=== PATIENT | female | born 1995 | race Caucasian/White ===

== ENCOUNTER 2024-10-14 20:31 | Emergency (ER) | payer MEDICAID, SELFPAY ==
[2024-10-14 20:32] VITALS: BP 120/77; PULSE 86; RESP 16; TEMP 35.7; O2SAT 100
--- NOTE | 2024-10-14 20:45 | EDS_ITS ---
HPI HPI - Female History of Present Illness Chief Complaint: Informant: patient Pain Pain: Negative for Pelvic Pain or Vaginal Pain Quality: Negative for Cramping Bleeding Issue: Negative for Vaginal bleeding, Passing clots or Passing tissue Narrative Narrative: Patient presents for concern for . Patient states she is approximately 19 weeks . Patient states she has not been feeling movements as much today. Patient states she felt them earlier this morning but throughout the day she has not been feeling movements. Patient called her PASSENGER SERVICE MANAGER who referred her to the emergency department. Patient denies any bleeding or discharge. Patient denies any cramping. Patient denies any leakage of fluids. Patient denies any fevers or chills. PFSH PFSH no medical history Allergy/AdvReac Type Severity Reaction Status Date / Time No Known Allergies Allergy Verified 10/14/24 20:32 no surgical history Social History Smoking Status: Never smoker ROS ROS ED Constitutional Constitutional ED: Denies chills or fever(s) ENT ENT ED: Denies sore throat Cardiovascular Cardiovascular: Denies chest pain or palpitations Respiratory/Chest Respiratory/Chest: Denies cough or dyspnea Gastrointestinal Gastrointestinal: Denies nausea or vomiting Genitourinary Genitourinary ED: Denies dysuria or hematuria Musculoskeletal Musculoskeletal: Denies back pain Neurologic Neurologic: Denies weakness EXAM Physical Exam Const Vital Signs: 10/14/24 20:32 Temperature 96.2 F L Temperature Source Temporal Pulse Rate 86 Respiratory Rate 16 Blood Pressure 120/77 Blood Pressure Mean 91 Pulse Ox 100 Oxygen Delivery Method Room Air Positive well nourished and well developed General Appearance ED: well developed and NAD HEENT Reports moist mucous membranes Neck supple and no JVD GI soft to palpation, non-tender and non-distended Extremity full ROM Neuro oriented x3, CN's II-XII intact bilaterally and no sensory deficits noted Sensorium / Orientation: alert Motor Exam: strength 5/5 throughout Psych mental status grossly normal MDM [facility] Treatment and Re-Evaluation Narrative: [id number] ultrasound was used. There is good movement. There is good heart rate noted. Patient was reassured. Patient feels better. Patient was instructed to follow-up with her PASSENGER SERVICE MANAGER in 3 to 5 days. Patient was instructed to return if worse in any way. Patient understood and was agreeable with the plan. All questions were answered. Discharge Plan Triage Chief Complaint: ED Midlevel Provider: Shalini Loving ED Provider: Carlos Grant Dx/Rx/DC Orders Clinical Impression: Second trimester Instructions: ED Primary Care Provider: Care Physician,No Primary Referrals: Care Physician,No Primary [Primary Care Provider] - Activity Restrictions/Additional Instructions: The bedside ultrasound showed that the baby is moving around well and has an appropriate heartbeat. Please follow-up with your PASSENGER SERVICE MANAGER. Print Language: Armenian Disposition Disposition: Home, Self Care Discharge Date/Time: 10/14/24 20:57
== END 2024-10-14 20:57 | disposition home or self-care (01) ==
LOC: ED 20:55
PROVIDERS: Emergency Provider Emergency Medicine; Visit Provider Emergency Medicine
DX: O36.8120 Decreased fetal movements, second trimester, not applicable or unspecified (principal); Z3A.19 19 weeks gestation of pregnancy
CPT/HCPCS: 99282